=== PATIENT | female | born 1995 | race American Indian/Alaskan Native ===

== ENCOUNTER 2017-02-02 19:53 | Emergency (ER) | payer SELFPAY ==
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
[2017-02-02 21:08] VITALS: BP 121/71
[2017-02-02 21:16] LABS: CHLORIDE,CL 107 mmol/L (101-111); SODIUM,NA 139 mmol/L (135-145)
== END 2017-02-02 21:44 | disposition home or self-care (01) ==
LOC: DL.ED 19:53
DX: K64.1 Second degree hemorrhoids (principal); E66.9 Obesity, unspecified; Z88.1 Allergy status to other antibiotic agents; Z87.440 Personal history of urinary (tract) infections; Z98.890 Other specified postprocedural states
CPT/HCPCS: 36415; 80053; 81001; 82150; 85025; 86140; 99283

== ENCOUNTER 2017-05-14 11:38 | Emergency (ER) | payer OTHER ==
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
[2017-05-14 12:17] VITALS: BP 123/72
[2017-05-14] MEDS ORDERED: Magnesium Citrate Solution 296 ML Bottle PO ONE (13:00)
== END 2017-05-14 13:21 | disposition home or self-care (01) ==
LOC: DL.ED 11:38
DX: K59.00 Constipation, unspecified (principal); Z88.1 Allergy status to other antibiotic agents
CPT/HCPCS: 74020; 81001; 81025; 99284; A9270; 99282

== ENCOUNTER 2017-11-13 01:44 | Emergency (ER) | payer OTHER ==
[2017-11-13] MEDS ORDERED: Codeine/Promethazine 10-6.25 MG/5 ML Syrup 5 ML UD Cup PO ONE (01:45)
[2017-11-13 01:49] VITALS: BP 133/86
[2017-11-13] MEDS ORDERED: Azithromycin 250 MG Tab PO ONE (01:58)
[2017-11-13] MEDS ORDERED: Codeine/Promethazine 10-6.25 MG/5 ML Syrup 5 ML UD Cup ONE (02:04)
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
== END 2017-11-13 02:11 | disposition home or self-care (01) ==
LOC: DL.ED 01:44
DX: J40 Bronchitis, not specified as acute or chronic (principal); J03.90 Acute tonsillitis, unspecified; F17.210 Nicotine dependence, cigarettes, uncomplicated; E66.9 Obesity, unspecified; Z88.1 Allergy status to other antibiotic agents
CPT/HCPCS: 99283; A9270

== ENCOUNTER 2020-03-01 20:02 | Emergency (ER) | payer BC, OTHER ==
[2020-03-01 20:10] VITALS: BP 140/75; PULSE 97
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
--- NOTE | 2020-03-01 20:24 | CR ---
PROCEDURE INFORMATION: Exam: XR Left Finger(s) Exam date and time: 03/01/2020 8:12 PM Age: 24 years old Clinical indication: Other: Fall--3rd finger pain; Additional info: Swelling pain, fell TECHNIQUE: Imaging protocol: XR Left fingers. Views: Minimum 2 views. COMPARISON: No relevant prior studies available. FINDINGS: Bones/joints: Normal. Soft tissues: Soft tissue swelling surrounding the 3rd digit. IMPRESSION: Suggestion of soft tissue swelling 3rd digit. No fracture or dislocation.
== END 2020-03-01 20:28 | disposition home or self-care (01) ==
LOC: DL.ED 20:02
DX: S63.633A Sprain of interphalangeal joint of left middle finger, initial encounter (principal); E66.9 Obesity, unspecified; Z68.44 Body mass index [BMI] 60.0-69.9, adult; Z88.1 Allergy status to other antibiotic agents; W01.0XXA Fall on same level from slipping, tripping and stumbling without subsequent striking against object, initial encounter
CPT/HCPCS: 73140-F2; 99283

== ENCOUNTER 2020-08-05 20:40 | Emergency (ER) | payer BC, OTHER ==
[2020-08-05 22:22] VITALS: BP 137/77; PULSE 79
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
== END 2020-08-05 22:37 | disposition home or self-care (01) ==
LOC: DL.ED 20:40
DX: S29.011A Strain of muscle and tendon of front wall of thorax, initial encounter (principal); E66.9 Obesity, unspecified; Z79.899 Other long term (current) drug therapy; Z88.0 Allergy status to penicillin; X50.9XXA Other and unspecified overexertion or strenuous movements or postures, initial encounter
CPT/HCPCS: 99283; 99284

== ENCOUNTER 2021-06-09 00:02 | Emergency (ER) | payer MEDICAID ==
[2021-06-09 00:25] VITALS: BP 117/48; PULSE 79
[2021-06-09 01:11] LABS: ANION GAP 13.7 mEq/L (7-13); CHLORIDE,CL 103 mmol/L (98-107); SODIUM,NA 140 mmol/L (136-145)
== END 2021-06-09 01:49 | disposition home or self-care (01) ==
LOC: DL.ED 00:02
DX: R25.2 Cramp and spasm (principal); E66.9 Obesity, unspecified; Z68.44 Body mass index [BMI] 60.0-69.9, adult; Z88.0 Allergy status to penicillin; Z72.0 Tobacco use
CPT/HCPCS: 36415; 80053; 81003; 85025; 99283

== ENCOUNTER 2021-08-18 03:21 | Emergency (ER) | payer MEDICAID ==
[2021-08-18] MEDS ORDERED: LORazepam 1 MG Tab PO ONE (03:22)
[2021-08-18] MEDS ORDERED: MVI, Adult with Vitamin K 10 ML, Folic Acid 1 MG, Thiamine 100 MG in Lactated Ringers 1... IV ONE ×4 (03:43)
[2021-08-18 04:14] LABS: AMPHETAMINES,URINE POSITIVE (NEGATIVE); BARBITURATES,URINE NEGATIVE (NEGATIVE); BENZODIAZEPINE,URINE NEGATIVE (NEGATIVE); MDMA (ECSTASY), URINE NEGATIVE (NEGATIVE); METHADONE,URINE NEGATIVE (NEGATIVE); METHAMPHETAMINES,URINE POSITIVE (NEGATIVE); OPIATES,URINE NEGATIVE (NEGATIVE); OXYCODONE,URINE NEGATIVE (NEGATIVE); PHENCYCLIDINE,URINE NEGATIVE (NEGATIVE); TCA,URINE NEGATIVE (NEGATIVE)
[2021-08-18 04:33] LABS: ANION GAP 18.2 mEq/L (7-13); CHLORIDE,CL 106 mmol/L (98-107); SODIUM,NA 142 mmol/L (136-145)
[2021-08-18] MEDS ORDERED: LORazepam 2 MG/ML SDV IVPUSH ONE (04:42)
[2021-08-18 04:54] VITALS: BP 114/54; PULSE 61
[2021-08-18] MEDS ORDERED: LORazepam 1 MG Tab ONE (05:15)
== END 2021-08-18 05:25 | disposition home or self-care (01) ==
LOC: DL.ED 03:21
DX: F41.9 Anxiety disorder, unspecified (principal); F10.10 Alcohol abuse, uncomplicated; E66.9 Obesity, unspecified; Z68.43 Body mass index [BMI] 50.0-59.9, adult; Z88.0 Allergy status to penicillin
CPT/HCPCS: 36415; 80053; 80305; 80307; 81001; 82150; 84703; 85025; 96365; 96375; 99283; A9270; J2060; J3411; J7120; J3490

== ENCOUNTER 2021-08-24 10:38 | Observation (INO) | payer MEDICAID ==
[2021-08-24] MEDS ORDERED: MVI, Adult with Vitamin K 10 ML, Thiamine 100 MG, Folic Acid 1 MG in Lactated Ringers 1... IV ONE ×4 (11:00)
[2021-08-24] MEDS ORDERED: LORazepam 2 MG/ML SDV IVPUSH ONE (11:05)
[2021-08-24 11:19] LABS: AMPHETAMINES,URINE NEGATIVE (NEGATIVE); BARBITURATES,URINE NEGATIVE (NEGATIVE); BENZODIAZEPINE,URINE NEGATIVE (NEGATIVE); MDMA (ECSTASY), URINE NEGATIVE (NEGATIVE); METHADONE,URINE NEGATIVE (NEGATIVE); METHAMPHETAMINES,URINE NEGATIVE (NEGATIVE); OPIATES,URINE NEGATIVE (NEGATIVE); OXYCODONE,URINE NEGATIVE (NEGATIVE); PHENCYCLIDINE,URINE NEGATIVE (NEGATIVE); TCA,URINE NEGATIVE (NEGATIVE)
[2021-08-24] MEDS: Sodium Chloride 0.9% 10 ML Syringe FLUSH PRN ×2 (11:23→20:02)
[2021-08-24 11:35] LABS: PTT,PARTIAL THROMBOPLSTIN TIME 25.7 SEC (22.0-34.0)
[2021-08-24 11:42] LABS: ANION GAP 17.5 mEq/L (7-13); CHLORIDE,CL 104 mmol/L (98-107); SODIUM,NA 139 mmol/L (136-145)
[2021-08-24] MEDS ORDERED: LORazepam 2 MG/ML SDV IVPUSH PRN (13:47)
[2021-08-24] MEDS ORDERED: Ondansetron 4 MG Tab.DIS PO PRN (13:50)
[2021-08-24] MEDS ORDERED: Acetaminophen 325 MG Tab PO PRN (13:50)
[2021-08-24] MEDS ORDERED: Docusate Sodium 100 MG Cap PO PRN (13:50)
[2021-08-24] MEDS: Heparin Sodium 5,000 Units/ML Vial SUBCUT SCH ×2 (14:21→21:07)
[2021-08-24] MEDS: Folic Acid 1 MG Tab PO SCH (14:22)
[2021-08-24] MEDS: Thiamine 100 MG Tab PO SCH (14:23)
[2021-08-24] MEDS: Multivitamin Tab PO SCH (14:23)
[2021-08-24] MEDS: LORazepam 0.5 MG Tab PO PRN ×2 (17:47→22:11)
[2021-08-24] MEDS ORDERED: Temazepam 15 MG Cap PO PRN (21:00)
[2021-08-25] MEDS: Heparin Sodium 5,000 Units/ML Vial SUBCUT SCH (05:44)
[2021-08-25 06:43] LABS: ANION GAP 14.6 mEq/L (7-13); CHLORIDE,CL 104 mmol/L (98-107); SODIUM,NA 140 mmol/L (136-145)
[2021-08-25 07:44] VITALS: PULSE 65
[2021-08-25] MEDS: Folic Acid 1 MG Tab PO SCH (08:38)
[2021-08-25] MEDS: Thiamine 100 MG Tab PO SCH (08:38)
[2021-08-25] MEDS: Multivitamin Tab PO SCH (08:38)
[2021-08-25 11:45] VITALS: BP 126/74
[2021-08-26 12:47] LABS: C.TRACHOMATIS BY TMA Negative (Negative); N.GONORRHOEAE BY TMA Negative (Negative)
== END 2021-08-25 12:20 | disposition home or self-care (01) ==
LOC: DL.ED 10:38 → DL.MS 13:14 → UNDOADMOB 13:14 → INTOOBSV 13:14
PROVIDERS: ADMIT Internal Medicine; ATTEND Internal Medicine
DX: F10.10 Alcohol abuse, uncomplicated (principal); N89.8 Other specified noninflammatory disorders of vagina; F17.210 Nicotine dependence, cigarettes, uncomplicated; E66.9 Obesity, unspecified; Z98.890 Other specified postprocedural states; Z79.899 Other long term (current) drug therapy; Z88.0 Allergy status to penicillin; Z20.822 Contact with and (suspected) exposure to COVID-19
CPT/HCPCS: 36415; 80048; 80053; 80076; 80305-QW; 80307; 81003; 81025; 82150; 83690; 83735; 84100; 84443; 85025; 85610; 85730; 87070; 87491; 87563; 87591; 96365; 96372; 96375; 99217; 99219; 99285; 99285-25; A9270-GY; G0378; J1644; J2060; J3411; J3490; J7120; U0002

== ENCOUNTER 2021-09-16 14:22 | Emergency (ER) | payer MEDICAID, OTHER ==
[2021-09-16 15:54] LABS: ANION GAP 10.3 mEq/L (7-13); CHLORIDE,CL 105 mmol/L (98-107); SODIUM,NA 139 mmol/L (136-145)
[2021-09-16 16:19] LABS: AMPHETAMINES,URINE NEGATIVE (NEGATIVE); BARBITURATES,URINE NEGATIVE (NEGATIVE); BENZODIAZEPINE,URINE NEGATIVE (NEGATIVE); MDMA (ECSTASY), URINE NEGATIVE (NEGATIVE); METHADONE,URINE NEGATIVE (NEGATIVE); METHAMPHETAMINES,URINE NEGATIVE (NEGATIVE); OPIATES,URINE NEGATIVE (NEGATIVE); OXYCODONE,URINE POSITIVE (NEGATIVE); PHENCYCLIDINE,URINE NEGATIVE (NEGATIVE); TCA,URINE NEGATIVE (NEGATIVE)
[2021-09-16] MEDS ORDERED: LORazepam 0.5 MG Tab PO ONE (16:24)
[2021-09-16] MEDS ORDERED: Ondansetron 4 MG Tab.DIS PO ONE (16:24)
[2021-09-16 17:00] VITALS: BP 108/54; PULSE 72
== END 2021-09-16 16:58 | disposition home or self-care (01) ==
LOC: DL.ED 14:22
DX: F10.239 Alcohol dependence with withdrawal, unspecified (principal); E66.9 Obesity, unspecified; Z68.43 Body mass index [BMI] 50.0-59.9, adult; Z88.0 Allergy status to penicillin; Z72.0 Tobacco use
CPT/HCPCS: 36415; 80053; 80305-QW; 80307; 81001; 81025; 85025; 99282; 99284; A9270-GY

== ENCOUNTER 2021-09-26 06:01 | Emergency (ER) | payer MEDICAID ==
[2021-09-26 06:10] VITALS: BP 133/83; PULSE 81
[2021-09-26] MEDS ORDERED: Bacitracin Oint 1 GM U/D Packet TOP ONE (06:18)
[2021-09-26] MEDS ORDERED: LORazepam 0.5 MG Tab PO ONE (06:18)
== END 2021-09-26 07:02 | disposition home or self-care (01) ==
LOC: DL.ED 06:01
DX: F41.9 Anxiety disorder, unspecified (principal); F10.10 Alcohol abuse, uncomplicated; S61.213A Laceration without foreign body of left middle finger without damage to nail, initial encounter; E66.9 Obesity, unspecified; Z68.43 Body mass index [BMI] 50.0-59.9, adult; Z88.0 Allergy status to penicillin; Z72.0 Tobacco use
CPT/HCPCS: 99283; 99284; A9270-GY

== ENCOUNTER 2021-10-22 03:23 | Emergency (ER) | payer MEDICAID ==
[2021-10-22] MEDS ORDERED: MVI, Adult with Vitamin K 10 ML, Folic Acid 1 MG, Thiamine 100 MG in Lactated Ringers 1... IV ONE ×4 (03:34)
[2021-10-22 03:38] VITALS: BP 128/93; PULSE 97
[2021-10-22] MEDS ORDERED: LORazepam 2 MG/ML SDV IVPUSH PRN (03:43)
[2021-10-22 04:42] LABS: ANION GAP 17.5 mEq/L (7-13); CHLORIDE,CL 110 mmol/L (98-107); SODIUM,NA 146 mmol/L (136-145)
[2021-10-22 04:48] LABS: AMPHETAMINES,URINE NEGATIVE (NEGATIVE); BARBITURATES,URINE NEGATIVE (NEGATIVE); BENZODIAZEPINE,URINE NEGATIVE (NEGATIVE); MDMA (ECSTASY), URINE NEGATIVE (NEGATIVE); METHADONE,URINE NEGATIVE (NEGATIVE); METHAMPHETAMINES,URINE NEGATIVE (NEGATIVE); OPIATES,URINE NEGATIVE (NEGATIVE); OXYCODONE,URINE NEGATIVE (NEGATIVE); PHENCYCLIDINE,URINE NEGATIVE (NEGATIVE); TCA,URINE NEGATIVE (NEGATIVE)
== END 2021-10-22 13:19 | disposition other institution (70) ==
LOC: DL.ED 03:23
DX: F10.129 Alcohol abuse with intoxication, unspecified (principal); R45.851 Suicidal ideations; F17.210 Nicotine dependence, cigarettes, uncomplicated; E66.9 Obesity, unspecified; Z68.43 Body mass index [BMI] 50.0-59.9, adult; Z88.0 Allergy status to penicillin; Y90.7 Blood alcohol level of 200-239 mg/100 ml
CPT/HCPCS: 36415; 80053; 80305; 80307; 81001; 84703; 85025; 96365; 96375; 99285; J2060; J3411; J7120; J3490

== ENCOUNTER 2021-11-13 16:13 | Observation (INO) | payer MEDICAID ==
[2021-11-13] MEDS ORDERED: Sodium Chloride 0.9% 10 ML Syringe FLUSH PRN (16:22)
[2021-11-13] MEDS ORDERED: MVI, Adult with Vitamin K 10 ML, Folic Acid 1 MG, Thiamine 100 MG in Lactated Ringers 1... IV ONE ×4 (16:49)
[2021-11-13 17:07] LABS: ANION GAP 16.1 mEq/L (7-13)
[2021-11-13] MEDS ORDERED: Potassium Chloride 10 MEQ Tab.ER PO ONE (17:52)
[2021-11-13 18:12] LABS: AMPHETAMINES,URINE NEGATIVE (NEGATIVE); BARBITURATES,URINE NEGATIVE (NEGATIVE); BENZODIAZEPINE,URINE NEGATIVE (NEGATIVE); MDMA (ECSTASY), URINE NEGATIVE (NEGATIVE); METHADONE,URINE NEGATIVE (NEGATIVE); METHAMPHETAMINES,URINE NEGATIVE (NEGATIVE); OPIATES,URINE NEGATIVE (NEGATIVE); OXYCODONE,URINE NEGATIVE (NEGATIVE); PHENCYCLIDINE,URINE NEGATIVE (NEGATIVE); TCA,URINE NEGATIVE (NEGATIVE)
[2021-11-13] MEDS ORDERED: Albuterol/Ipratropium 3.0-0.5 MG/3 ML Neb Soln NEB PRN (19:39)
[2021-11-13] MEDS ORDERED: Ketorolac 30 MG/ML SDV IVPUSH PRN (19:39)
[2021-11-13] MEDS ORDERED: Bisacodyl 5 MG Tab PO PRN (19:39)
[2021-11-13] MEDS ORDERED: HYDROmorphone 0.5 MG/0.5 ML Syringe IVPUSH PRN (19:39)
[2021-11-13] MEDS ORDERED: Docusate Sodium 100 MG Cap PO PRN (19:39)
[2021-11-13] MEDS ORDERED: Polyethylene Glycol 3350 Powder 17 GM Packet PO PRN (19:39)
[2021-11-13] MEDS ORDERED: LORazepam 2 MG/ML SDV IV PRN (19:42)
[2021-11-13] MEDS ORDERED: Thiamine 100 MG in Sodium Chloride 0.9% 50 ML IV ONE (19:42)
[2021-11-13] MEDS ORDERED: cloNIDine 0.1 MG Tab PO PRN (19:42)
[2021-11-13] MEDS ORDERED: LORazepam 0.5 MG Tab PO PRN (19:42)
[2021-11-13] MEDS ORDERED: Nicotine 21 MG/24 Hr Patch TRDERM PRN (19:42)
[2021-11-13] MEDS ORDERED: LORazepam 2 MG/ML SDV IVPUSH ONE (19:44)
[2021-11-13] MEDS ORDERED: Flumazenil 0.1 MG/ML 5 ML MDV IVPUSH PRN (19:44)
[2021-11-13] MEDS ORDERED: Famotidine 20 MG/2 ML SDV IVPUSH ONE (19:45)
[2021-11-13] MEDS ORDERED: Haloperidol Lactate 5 MG/ML SDV IVPUSH PRN (20:02)
[2021-11-13] MEDS ORDERED: hydrALAZINE 20 MG/ML SDV IVPUSH PRN (20:04)
[2021-11-13] MEDS ORDERED: Metoprolol Tartrate 5 MG/5 ML SDV IVPUSH PRN (20:04)
[2021-11-13] MEDS ORDERED: LORazepam 2 MG/ML SDV IVPUSH PRN (20:05)
[2021-11-13] MEDS: Topiramate 25 MG Tab PO SCH (20:38)
[2021-11-13] MEDS ORDERED: Sodium Chloride 0.9% 1,000 ML IV SCH (20:45)
[2021-11-13] MEDS ORDERED: Topiramate 25 MG Tab PO SCH (21:00)
[2021-11-13] MEDS ORDERED: QUEtiapine 25 MG Tab PO SCH ×2 (21:00)
[2021-11-14 06:51] LABS: ANION GAP 9.4 mEq/L (7-13)
[2021-11-14] MEDS ORDERED: Potassium Chloride 10 MEQ Tab.ER PO ONE ×2 (07:42→10:45)
[2021-11-14] MEDS ORDERED: Magnesium Sulfate/Water 2 GM in Premix Bag 1 BAG IV ONE (07:44)
[2021-11-14] MEDS: Folic Acid 1 MG Tab PO SCH (10:16)
[2021-11-14] MEDS: Famotidine 20 MG Tab PO SCH ×2 (10:16→22:05)
[2021-11-14] MEDS: Topiramate 25 MG Tab PO SCH (10:17)
[2021-11-14] MEDS: Thiamine 100 MG Tab PO SCH (10:17)
[2021-11-14] MEDS: Multivitamin Tab PO SCH (10:18)
[2021-11-14] MEDS: Ondansetron 4 MG/2 ML SDV IVPUSH PRN (13:23)
[2021-11-14] MEDS: Ibuprofen 600 MG Tab PO PRN (13:23)
[2021-11-14] MEDS ORDERED: Melatonin 3 MG Tab PO PRN (18:26)
[2021-11-15 06:42] LABS: ANION GAP 10.1 mEq/L (7-13)
[2021-11-15] MEDS: Ondansetron 4 MG/2 ML SDV IVPUSH PRN (08:55)
[2021-11-15] MEDS: Ibuprofen 600 MG Tab PO PRN (08:55)
[2021-11-15] MEDS: Thiamine 100 MG Tab PO SCH (08:58)
[2021-11-15] MEDS: Multivitamin Tab PO SCH (08:58)
[2021-11-15] MEDS: Famotidine 20 MG Tab PO SCH (08:58)
[2021-11-15] MEDS: Folic Acid 1 MG Tab PO SCH (08:58)
[2021-11-15] MEDS ORDERED: Ondansetron 4 MG Tab.DIS PO ONE (09:06)
[2021-11-15 11:16] VITALS: BP 108/62; PULSE 65
== END 2021-11-15 10:35 | disposition other institution (70) ==
LOC: DL.ED 16:13 → DL.MS 18:04
PROVIDERS: ADMIT Internal Medicine; ATTEND Internal Medicine
DX: F32.A Depression, unspecified (principal); F41.0 Panic disorder [episodic paroxysmal anxiety]; E87.6 Hypokalemia; R45.851 Suicidal ideations; E66.9 Obesity, unspecified; Z68.43 Body mass index [BMI] 50.0-59.9, adult; Z88.0 Allergy status to penicillin; Z20.822 Contact with and (suspected) exposure to COVID-19
CPT/HCPCS: 36415; 80053; 80143; 80179; 80305; 80307; 81003; 81025; 83735; 84443; 85025; 85610; 87635; 96365; 99285; A9270; J2060; J2405; J3411; J3475; J3490; J7030; J7120; 96366; 96367; 96375; G0378; U0002

== ENCOUNTER 2021-11-21 04:59 | Emergency (ER) | payer MEDICAID ==
[2021-11-21 05:34] VITALS: BP 118/79; PULSE 70
== END 2021-11-21 06:25 ==
LOC: DL.ED 04:59
DX: Z02.89 Encounter for other administrative examinations (principal); F41.9 Anxiety disorder, unspecified; F32.A Depression, unspecified; E66.9 Obesity, unspecified; Z88.0 Allergy status to penicillin; Z20.822 Contact with and (suspected) exposure to COVID-19
CPT/HCPCS: 81025; 99283; U0002

== ENCOUNTER 2021-11-28 02:42 | Emergency (ER) | payer MEDICAID ==
[2021-11-28] MEDS ORDERED: Ondansetron 4 MG/2 ML SDV IVPUSH ONE (02:54)
[2021-11-28] MEDS ORDERED: Sodium Chloride 0.9% 1,000 ML IV ONE (02:54)
[2021-11-28] MEDS: Metoclopramide 10 MG/2 ML SDV ONE ×2 (03:35→03:42)
[2021-11-28] MEDS: Metoclopramide 10 MG/2 ML SDV IVPUSH ONE ×2 (03:35→03:49)
[2021-11-28 03:40] LABS: ANION GAP 17.5 mEq/L (7-13); CHLORIDE,CL 113 mmol/L (98-107); SODIUM,NA 148 mmol/L (136-145)
[2021-11-28 03:41] LABS: ACETAMINOPHEN 0 ug/mL (10-30 (Therapeutic)); ESTIMATED GFR 106 mL/min (>=60)
[2021-11-28] MEDS ORDERED: Haloperidol Lactate 5 MG/ML SDV IM ONE (03:41)
[2021-11-28] MEDS ORDERED: LORazepam 2 MG/ML SDV IVPUSH PRN (03:41)
[2021-11-28] MEDS ORDERED: diphenhydrAMINE 50 MG/ML SDV IVPUSH PRN (03:41)
[2021-11-28 03:53] VITALS: BP 68/58; PULSE 84
[2021-11-28 07:28] LABS: ACETAMINOPHEN 0 ug/mL (10-30 (Therapeutic))
[2021-11-28] MEDS ORDERED: LORazepam 2 MG/ML SDV IVPUSH ONE (11:49)
== END 2021-11-28 12:05 | disposition other institution (70) ==
LOC: DL.ED 02:42
DX: F10.239 Alcohol dependence with withdrawal, unspecified (principal); F32.9 Major depressive disorder, single episode, unspecified; R45.851 Suicidal ideations; E66.9 Obesity, unspecified; Z68.30 Body mass index [BMI] 30.0-30.9, adult; Z86.16 Personal history of COVID-19; Z88.0 Allergy status to penicillin; Z79.899 Other long term (current) drug therapy
CPT/HCPCS: 36415; 80053; 80143; 80179; 80307; 82150; 85025; 96361; 96374; 96375; 99284; J2060; J2405; J2765; J7030; 99283

== ENCOUNTER 2021-12-02 08:47 | Emergency (ER) | payer MEDICAID ==
[2021-12-02 09:21] VITALS: BP 109/85; PULSE 76
[2021-12-02] MEDS: Ondansetron 4 MG/2 ML SDV IVPUSH ONE (09:36)
[2021-12-02 09:42] LABS: AMPHETAMINES,URINE NEGATIVE (NEGATIVE); BARBITURATES,URINE NEGATIVE (NEGATIVE); BENZODIAZEPINE,URINE POSITIVE (NEGATIVE); MDMA (ECSTASY), URINE NEGATIVE (NEGATIVE); METHADONE,URINE NEGATIVE (NEGATIVE); METHAMPHETAMINES,URINE NEGATIVE (NEGATIVE); OPIATES,URINE NEGATIVE (NEGATIVE); OXYCODONE,URINE NEGATIVE (NEGATIVE); PHENCYCLIDINE,URINE NEGATIVE (NEGATIVE); TCA,URINE NEGATIVE (NEGATIVE)
[2021-12-02 09:44] LABS: ANION GAP 19.7 mEq/L (7-13); CHLORIDE,CL 108 mmol/L (98-107); SODIUM,NA 144 mmol/L (136-145)
[2021-12-02 09:52] LABS: ESTIMATED GFR 108 mL/min (>=60)
[2021-12-02] MEDS: MVI, Adult with Vitamin K 10 ML, Folic Acid 1 MG, Thiamine 100 MG in Lactated Ringers 1... IV ONE ×4 (09:55)
[2021-12-02] MEDS: Sodium Chloride 0.9% 10 ML Syringe FLUSH PRN (09:56)
== END 2021-12-02 13:22 ==
LOC: DL.ED 08:47
DX: R45.851 Suicidal ideations (principal); E66.9 Obesity, unspecified; Z68.43 Body mass index [BMI] 50.0-59.9, adult; Z88.0 Allergy status to penicillin; Z86.16 Personal history of COVID-19
CPT/HCPCS: 36415; 80053; 80305; 80307; 82150; 83690; 83735; 84484; 85025; 93005; 93010; 96365; 96375; 99283; 99285; J2405; J3411; J3490; J7120

== ENCOUNTER 2022-03-01 08:34 | Emergency (ER) | payer MEDICAID ==
[2022-03-01] MEDS ORDERED: Ondansetron 4 MG/2 ML SDV IVPUSH ONE (09:10)
[2022-03-26 15:46] LABS: ANION GAP 13.4 mEq/L (7-13); CHLORIDE,CL 107 mmol/L (98-107); ESTIMATED GFR 122 mL/min (>=60); SODIUM,NA 143 mmol/L (136-145)
[2022-03-26 15:48] LABS: AMPHETAMINES,URINE NEGATIVE (NEGATIVE); BARBITURATES,URINE NEGATIVE (NEGATIVE); BENZODIAZEPINE,URINE NEGATIVE (NEGATIVE); MDMA (ECSTASY), URINE NEGATIVE (NEGATIVE); METHADONE,URINE NEGATIVE (NEGATIVE); METHAMPHETAMINES,URINE NEGATIVE (NEGATIVE); OPIATES,URINE NEGATIVE (NEGATIVE); OXYCODONE,URINE NEGATIVE (NEGATIVE); PHENCYCLIDINE,URINE NEGATIVE (NEGATIVE); TCA,URINE NEGATIVE (NEGATIVE)
== END 2022-03-01 11:14 | disposition home or self-care (01) ==
LOC: DL.ED 08:34
DX: F10.139 Alcohol abuse with withdrawal, unspecified (principal); F41.9 Anxiety disorder, unspecified; Y90.2 Blood alcohol level of 40-59 mg/100 ml
CPT/HCPCS: 36415; 80053; 80305-QW; 80307; 81025; 85025; 96365; 96375; 99284-25

== ENCOUNTER 2022-03-04 14:55 | Emergency (ER) | payer MEDICAID ==
[2022-03-04] MEDS ORDERED: cefTRIAXone 500 MG Vial IV ONE (16:40)
[2022-03-04] MEDS ORDERED: Lidocaine 1% 10 ML MDV IM ONE (16:40)
[2022-03-29 13:57] LABS: ANION GAP 11.8 mEq/L (7-13); CHLORIDE,CL 105 mmol/L (98-107); ESTIMATED GFR 96 mL/min (>=60); SODIUM,NA 140 mmol/L (136-145)
[2022-03-29 14:00] LABS: C.TRACHOMATIS BY TMA NEGATIVE; N.GONORRHOEAE BY TMA NEGATIVE
== END 2022-03-04 16:46 | disposition home or self-care (01) ==
LOC: DL.ED 14:55
DX: Z20.2 Contact with and (suspected) exposure to infections with a predominantly sexual mode of transmission (principal)
CPT/HCPCS: 36415; 80053; 81003; 81025; 85025; 87491; 87591; 96372; 99283; J0696

== ENCOUNTER 2022-04-11 09:29 | Emergency (ER) | payer MEDICAID | END 2022-04-11 11:00 | disposition left against medical advice (07) | LOC: DL.ED 09:29 | DX: Z53.21 Procedure and treatment not carried out due to patient leaving prior to being seen by health care provider (principal) ==

== ENCOUNTER 2023-07-13 00:09 | Emergency (ER) | payer SELFPAY ==
[2023-07-13 00:29] VITALS: BP 153/95; PULSE 74
[2023-07-13 00:40] LABS: APPEARANCE,URINE CLEAR (CLEAR); BILIRUBIN,URINE NEGATIVE (NEGATIVE); COLOR,URINE YELLOW (YELLOW); GLUCOSE,URINE NEGATIVE (NEGATIVE); KETONES,URINE NEGATIVE (NEGATIVE); NITRITE,URINE NEGATIVE (NEGATIVE); OCCULT BLOOD,URINE LARGE (NEGATIVE); PROTEIN,URINE >=300 (NEGATIVE); UROBILINOGEN,URINE 0.2 mg/dL (0.2-1.0)
[2023-07-13 00:54] LABS: LEUKOCYTE ESTERASE,URINE TRACE (NEGATIVE)
[2023-07-13] MEDS ORDERED: Sodium Chloride 0.9% 10 ML Syringe FLUSH PRN (00:57)
[2023-07-13 00:59] LABS: BACTERIA,URINE FEW /HPF (0-FEW/HPF); EPITHELIAL CELLS,URINE FEW /HPF (NOT SEEN); MUCUS,URINE OCCASIONAL /LPF (NOT SEEN); RBC,URINE 40-50 /HPF (0-5)
[2023-07-13] MEDS: Phenazopyridine 95 MG Tab PO ONE (01:06)
[2023-07-13] MEDS: Nitrofurantoin Monohydrate/Macrocrystalline 100 MG Cap PO ONE (01:06)
== END 2023-07-13 01:10 | disposition home or self-care (01) ==
LOC: DL.ED 00:09
DX: N39.0 Urinary tract infection, site not specified (principal); Z86.16 Personal history of COVID-19; Z88.0 Allergy status to penicillin
CPT/HCPCS: 81001; 81025; 87086; 87088; 87186; 99284; A9270-GY

== ENCOUNTER 2023-07-16 09:53 | Emergency (ER) | payer SELFPAY ==
[2023-07-16 10:08] LABS: BASOPHILS PERCENT AUTO 0.3 % (0.0-1.0); EOSINOPHILS PERCENT AUTO 0.9 % (1.0-3.0); HEMATOCRIT 36.3 % (37.0-47.0); HEMOGLOBIN 12.2 g/dL (12.0-16.0); LYMPHOCYTES PERCENT AUTO 23.7 % (20.5-50.1); MEAN CORPUSCULAR HEMOGLOBIN 28.6 pg (27.0-34.0); MEAN CORPUSCULAR HGB CONC 33.6 g/dL (33.0-35.0); MEAN CORPUSCULAR VOLUME 85.2 fL (80-100); MONOCYTES PERCENT AUTO 6.2 % (2-8); NEUTROPHILS PERCENT AUTO 68.9 % (42.2-75.2); PLATELET COUNT,PLT 282 10^3/uL (150-450); RED BLOOD CELL COUNT 4.26 10^6/uL (4.2-5.4)
[2023-07-16 10:13] LABS: AMPHETAMINES,URINE NEGATIVE (NEGATIVE); BARBITURATES,URINE NEGATIVE (NEGATIVE); BENZODIAZEPINE,URINE NEGATIVE (NEGATIVE); MDMA (ECSTASY), URINE NEGATIVE (NEGATIVE); METHADONE,URINE NEGATIVE (NEGATIVE); METHAMPHETAMINES,URINE NEGATIVE (NEGATIVE); OPIATES,URINE NEGATIVE (NEGATIVE); OXYCODONE,URINE NEGATIVE (NEGATIVE); PHENCYCLIDINE,URINE NEGATIVE (NEGATIVE); TCA,URINE NEGATIVE (NEGATIVE)
[2023-07-16 10:27] LABS: A/G RATIO 0.9; ALBUMIN 3.5 g/dL (3.4-5.0); ANION GAP 17.3 mEq/L (7-13); BILIRUBIN TOTAL 0.5 mg/dL (0.2-1.0); BUN/CREATININE RATIO 9.7 (No establ ref range); CALCIUM 8.3 mg/dL (8.5-10.1); CREATININE 0.72 mg/dL (0.55-1.02); EST CRCL DRUG DOSING (CG) 94.51 mL/min; POTASSIUM,K 3.3 mmol/L (3.5-5.1); PROTEIN TOTAL,TP 7.2 g/dL (6.4-8.2)
[2023-07-16] MEDS: LORazepam 1 MG Tab PO PRN (11:58)
[2023-07-16 12:21] VITALS: BP 146/92; PULSE 87
[2023-07-16] MEDS: Ondansetron 4 MG/2 ML SDV IVPUSH ONE (12:23)
== END 2023-07-16 12:03 ==
LOC: DL.ED 09:53
DX: F10.10 Alcohol abuse, uncomplicated (principal); Z88.0 Allergy status to penicillin; Z86.16 Personal history of COVID-19; Z79.899 Other long term (current) drug therapy
CPT/HCPCS: 36415; 80053; 80143; 80179; 80305; 80307; 81025; 83690; 85025; 99284; 99285; A9270

== ENCOUNTER 2023-11-08 16:39 | Emergency (ER) | payer BC ==
[2023-11-08 17:33] VITALS: BP 148/82; PULSE 63
== END 2023-11-08 18:10 | disposition left against medical advice (07) ==
LOC: DL.ED 16:39
DX: Z53.21 Procedure and treatment not carried out due to patient leaving prior to being seen by health care provider (principal)

== ENCOUNTER 2024-10-29 09:31 | Inpatient (IN) | payer BC, MEDICAID ==
[2024-10-29] MEDS ORDERED: Thiamine 100 MG in Sodium Chloride 0.9% 1,000 ML IV ONE (09:35)
[2024-10-29] MEDS: Ondansetron 4 MG/2 ML SDV IVPUSH ONE (10:04)
[2024-10-29 10:05] LABS: BASOPHILS PERCENT AUTO 0.4 % (0.0-1.0); EOSINOPHILS PERCENT AUTO 0.7 % (1.0-3.0); HEMATOCRIT 39.6 % (37.0-47.0); HEMOGLOBIN 13.1 g/dL (12.0-16.0); LYMPHOCYTES PERCENT AUTO 39.2 % (20.5-50.1); MEAN CORPUSCULAR HEMOGLOBIN 28.2 pg (27.0-34.0); MEAN CORPUSCULAR HGB CONC 33.1 g/dL (33.0-35.0); MEAN CORPUSCULAR VOLUME 85.3 fL (80-100); MONOCYTES PERCENT AUTO 10.5 % (2-8); NEUTROPHILS PERCENT AUTO 49.2 % (42.2-75.2); PLATELET COUNT,PLT 251 10^3/uL (150-450); RED BLOOD CELL COUNT 4.64 10^6/uL (4.2-5.4); WHITE BLOOD CELL COUNT,WBC 4.6 10^3/uL (5.0-10.0)
[2024-10-29] MEDS: PHENobarbitaL sodium 260 MG in Sodium Chloride 0.9% 100 ML IV ONE (10:05)
[2024-10-29 10:26] LABS: HCG QUALITATIVE,SERUM NEGATIVE (NEGATIVE)
[2024-10-29 10:31] LABS: ALANINE AMINOTRANSFERASE,ALT 35 U/L (14-59); ALKALINE PHOSPHATASE 128 U/L (46-116); ANION GAP 16.2 mEq/L (7-13); ASPARTATE AMNIOTRANSFERASE,AST 28 U/L (15-37); BILIRUBIN TOTAL 0.5 mg/dL (0.2-1.0); BLOOD UREA NITROGEN,BUN 3 mg/dL (7-18); BUN/CREATININE RATIO 4.1 (No establ ref range); CARBON DIOXIDE,CO2 24 mmol/L (21-32); CHLORIDE,CL 106 mmol/L (98-107); CREATININE 0.73 mg/dL (0.55-1.02); ETHANOL BLOOD MEDICAL 133 mg/dL (0); GLUCOSE RANDOM 110 mg/dL (70-99); MAGNESIUM 1.5 mg/dL (1.8-2.4); POTASSIUM,K 3.2 mmol/L (3.5-5.1); PROTEIN TOTAL,TP 7.1 g/dL (6.4-8.2); SODIUM,NA 143 mmol/L (136-145)
[2024-10-29 10:33] LABS: A/G RATIO 0.73; ESTIMATED GFR 113 mL/min (>=60)
[2024-10-29] MEDS: Thiamine 100 MG in Sodium Chloride 0.9% 1,000 ML IV ONE (10:56)
[2024-10-29] MEDS: chlordiazePOXIDE 25 MG Cap PO ONE (12:07)
[2024-10-29] MEDS: LORazepam 2 MG/ML SDV IVPUSH ONE (12:08)
[2024-10-29] MEDS: Lactated Ringers 1,000 ML IV ONE (12:09)
[2024-10-29] MEDS ORDERED: Acetaminophen 325 MG Tab PO PRN (12:38)
[2024-10-29] MEDS ORDERED: Sodium Chloride 0.9% 10 ML Syringe FLUSH PRN (12:38)
[2024-10-29] MEDS: MVI, Adult with Vitamin K 10 ML, Folic Acid 1 MG, Thiamine 100 MG in Lactated Ringers 1... IV ONE (14:03)
[2024-10-29] MEDS: Heparin Sodium 5,000 Units/ML Vial SUBCUT SCH (14:07)
[2024-10-29] MEDS: Potassium Chloride 20 MEQ in Premix Bag 1 BAG IV ONE (14:11)
[2024-10-29] MEDS: Magnesium Sulfate 2 GM/50 mL 2 GM in Premix Bag 1 BAG IV ONE (14:11)
[2024-10-29] MEDS: Sodium Chloride 0.9% 1,000 ML IV SCH (14:12)
[2024-10-29] MEDS: chlordiazePOXIDE 25 MG Cap PO SCH (16:06)
[2024-10-29] MEDS: Magnesium Oxide 400 MG Tab PO SCH (17:07)
[2024-10-29 19:36] LABS: AMPHETAMINES,URINE NEGATIVE (NEGATIVE); BARBITURATES,URINE POSITIVE (NEGATIVE); BENZODIAZEPINE,URINE NEGATIVE (NEGATIVE); MDMA (ECSTASY), URINE NEGATIVE (NEGATIVE); METHADONE,URINE NEGATIVE (NEGATIVE); METHAMPHETAMINES,URINE NEGATIVE (NEGATIVE); OPIATES,URINE NEGATIVE (NEGATIVE); OXYCODONE,URINE NEGATIVE (NEGATIVE); PHENCYCLIDINE,URINE NEGATIVE (NEGATIVE); TCA,URINE NEGATIVE (NEGATIVE)
[2024-10-29] MEDS: Sodium Chloride 0.9% 10 ML Syringe FLUSH SCH (20:24)
[2024-10-29] MEDS: Pantoprazole 40 MG Vial IVPUSH SCH (20:24)
[2024-10-30] MEDS: LORazepam 2 MG/ML SDV IVPUSH PRN (00:15)
[2024-10-30 06:30] LABS: BASOPHILS PERCENT AUTO 0.3 % (0.0-1.0); EOSINOPHILS PERCENT AUTO 3.6 % (1.0-3.0); HEMATOCRIT 35.5 % (37.0-47.0); LYMPHOCYTES PERCENT AUTO 45.9 % (20.5-50.1); MEAN CORPUSCULAR HEMOGLOBIN 27.4 pg (27.0-34.0); MEAN CORPUSCULAR VOLUME 88.5 fL (80-100); MONOCYTES PERCENT AUTO 8.5 % (2-8); NEUTROPHILS PERCENT AUTO 41.7 % (42.2-75.2); PLATELET COUNT,PLT 200 10^3/uL (150-450); RED BLOOD CELL COUNT 4.01 10^6/uL (4.2-5.4); WHITE BLOOD CELL COUNT,WBC 3.9 10^3/uL (5.0-10.0)
[2024-10-30 06:48] LABS: A/G RATIO 0.71; ALBUMIN 2.5 g/dL (3.4-5.0); ANION GAP 13.4 mEq/L (7-13); BILIRUBIN DIRECT 0.2 mg/dL (0.0-0.2); BILIRUBIN INDIRECT 0.5; BILIRUBIN TOTAL 0.7 mg/dL (0.2-1.0); CALCIUM 7.8 mg/dL (8.5-10.1); CREATININE 0.68 mg/dL (0.55-1.02); EST CRCL DRUG DOSING (CG) 99.16 mL/min; MAGNESIUM 1.9 mg/dL (1.8-2.4); PHOSPHORUS 2.8 mg/dL (2.6-4.7); POTASSIUM,K 3.4 mmol/L (3.5-5.1)
[2024-10-30] MEDS: Venlafaxine 150 MG Cap.ER PO SCH (08:26)
[2024-10-30] MEDS: chlordiazePOXIDE 25 MG Cap PO SCH (08:27)
[2024-10-30] MEDS: Magnesium Sulfate 2 GM/50 mL 2 GM in Premix Bag 1 BAG IV ONE (08:28)
[2024-10-30] MEDS: Potassium Chloride 20 MEQ in Premix Bag 1 BAG IV ONE (08:28)
[2024-10-30 08:29] LABS: PERCENT FE SATURATION 10.4 % (20.0-50.0)
[2024-10-30] MEDS: Ondansetron 4 MG/2 ML SDV IVPUSH PRN (12:41)
[2024-10-30] MEDS: Diphtheria,Pertussis(Acell),Tetanus Vaccine 0.5 ML Syringe IM ONE (17:17)
[2024-10-30] MEDS: Rabies Vaccine (Avian) 2.5 Unit Inj Kit IM ONE (18:03)
[2024-10-30] MEDS: Rabies Immune Globulin/PF (HyperRAB) 300 UNIT/ML 5 ML SDV ONE (18:09)
[2024-10-30] MEDS: Rabies Immune Globulin/PF (HyperRAB) 300 UNIT/ML 1 ML SDV ONE (18:13)
[2024-10-31 06:31] LABS: BASOPHILS PERCENT AUTO 0.5 % (0.0-1.0); EOSINOPHILS PERCENT AUTO 5.9 % (1.0-3.0); HEMATOCRIT 35.4 % (37.0-47.0); HEMOGLOBIN 11.3 g/dL (12.0-16.0); LYMPHOCYTES PERCENT AUTO 36.1 % (20.5-50.1); MEAN CORPUSCULAR HEMOGLOBIN 28.4 pg (27.0-34.0); MEAN CORPUSCULAR HGB CONC 31.9 g/dL (33.0-35.0); MEAN CORPUSCULAR VOLUME 88.9 fL (80-100); MONOCYTES PERCENT AUTO 9.7 % (2-8); NEUTROPHILS PERCENT AUTO 47.8 % (42.2-75.2); PLATELET COUNT,PLT 187 10^3/uL (150-450); RED BLOOD CELL COUNT 3.98 10^6/uL (4.2-5.4); WHITE BLOOD CELL COUNT,WBC 4.2 10^3/uL (5.0-10.0)
[2024-10-31 06:48] LABS: ANION GAP 10.7 mEq/L (7-13); CREATININE 0.63 mg/dL (0.55-1.02); EST CRCL DRUG DOSING (CG) 107.03 mL/min; MAGNESIUM 2.1 mg/dL (1.8-2.4); POTASSIUM,K 3.7 mmol/L (3.5-5.1)
[2024-11-01] MEDS: Ferrous Sulfate 325 MG Tab PO SCH (08:01)
[2024-11-01] MEDS: chlordiazePOXIDE 25 MG Cap PO SCH (08:11)
[2024-11-01] MEDS: Pantoprazole 40 MG Tab.CR PO SCH (21:19)
[2024-11-02] MEDS: chlordiazePOXIDE 10 MG Cap PO SCH (10:24)
[2024-11-02 16:06] VITALS: BP 136/86; PULSE 81
[2024-11-02] MEDS ORDERED: Rabies Vaccine (Avian) 2.5 Unit Inj Kit IM ONE (16:45)
[2024-11-06] MEDS ORDERED: Rabies Vaccine (Avian) 2.5 Unit Inj Kit IM ONE (16:45)
[2024-11-13] MEDS ORDERED: Rabies Vaccine (Avian) 2.5 Unit Inj Kit IM ONE (16:45)
== END 2024-11-02 16:30 | disposition home or self-care (01) | DRG 897 ==
LOC: DL.ED 09:31 → DL.MS 11:45
PROVIDERS: ADMIT Internal Medicine; ATTEND Internal Medicine
PROC: 3E0234Z Introduction of Serum, Toxoid and Vaccine into Muscle, Percutaneous Approach (ICD-10-PCS; principal; 2024-10-30)
DX: F10.239 Alcohol dependence with withdrawal, unspecified (principal); Z68.43 Body mass index [BMI] 50.0-59.9, adult; H54.7 Unspecified visual loss; F32.A Depression, unspecified; F41.9 Anxiety disorder, unspecified; E66.01 Morbid (severe) obesity due to excess calories; E88.89 Other specified metabolic disorders; E87.6 Hypokalemia; E83.42 Hypomagnesemia; D64.9 Anemia, unspecified; S81.851A Open bite, right lower leg, initial encounter; Z88.0 Allergy status to penicillin; Z79.899 Other long term (current) drug therapy; Z86.16 Personal history of COVID-19; Z23 Encounter for immunization; W54.0XXA Bitten by dog, initial encounter
CPT/HCPCS: 36415; 80053; 80307; 82607; 82746; 82977; 83735; 84703; 85025; 96365 ×2; 96366; 96375; 99285 ×2; J2405; J2560; J3411; J7030; 80048; 80076; 80305-QW; 82272; 83540; 83550; 84100; 90375; 90675; 90715; 99223; 99232; 99233; 99239; A9270-GY; J1644; J2060; J2470; J3475; J3480; J3490; J7120

== ENCOUNTER 2024-12-08 19:33 | Inpatient (IN) | payer MEDICAID ==
[2024-12-08 20:03] LABS: BASOPHILS PERCENT AUTO 0.3 % (0.0-1.0); EOSINOPHILS PERCENT AUTO 0.7 % (1.0-3.0); LYMPHOCYTES PERCENT AUTO 56.7 % (20.5-50.1); MONOCYTES PERCENT AUTO 8.3 % (2-8); NEUTROPHILS PERCENT AUTO 34.0 % (42.2-75.2); PLATELET COUNT,PLT 307 10^3/uL (150-450); RED BLOOD CELL COUNT 4.52 10^6/uL (4.2-5.4); WHITE BLOOD CELL COUNT,WBC 5.9 10^3/uL (5.0-10.0)
[2024-12-08 20:21] LABS: A/G RATIO 0.86; ALANINE AMINOTRANSFERASE,ALT 185.0 U/L (14-59); ASPARTATE AMNIOTRANSFERASE,AST 122.0 U/L (15-37); BILIRUBIN TOTAL 0.3 mg/dL (0.2-1.0); BLOOD UREA NITROGEN,BUN 3.0 mg/dL (7-18); CARBON DIOXIDE,CO2 25.0 mmol/L (21-32); CHLORIDE,CL 108.0 mmol/L (98-107); CREATININE 0.68 mg/dL (0.55-1.02); EST CRCL DRUG DOSING (CG) 99.16 mL/min; ESTIMATED GFR 119.0 mL/min (>=60); ETHANOL BLOOD MEDICAL 234.0 mg/dL (0); GLUCOSE RANDOM 90.0 mg/dL (70-99); POTASSIUM,K 3.4 mmol/L (3.5-5.1); PROTEIN TOTAL,TP 6.7 g/dL (6.4-8.2); SODIUM,NA 141.0 mmol/L (136-145)
[2024-12-08] MEDS: LORazepam 2 MG/ML SDV IVPUSH ONE (21:22)
[2024-12-08] MEDS: Potassium Chloride 10 MEQ Tab.ER PO ONE (21:36)
[2024-12-08] MEDS: Magnesium Sulfate 2 GM/50 mL 2 GM in Premix Bag 1 BAG IV ONE (21:37)
[2024-12-08] MEDS: MVI, Adult with Vitamin K 10 ML, Folic Acid 1 MG, Thiamine 100 MG in Lactated Ringers 1... IV ONE (21:37)
[2024-12-09 03:52] LABS: APPEARANCE,URINE SLIGHTLY CLOUDY (CLEAR); GLUCOSE,URINE NEGATIVE (NEGATIVE); OCCULT BLOOD,URINE NEGATIVE (NEGATIVE)
[2024-12-09 03:57] LABS: AMPHETAMINES,URINE NEGATIVE (NEGATIVE); BARBITURATES,URINE NEGATIVE (NEGATIVE); MDMA (ECSTASY), URINE NEGATIVE (NEGATIVE); METHAMPHETAMINES,URINE NEGATIVE (NEGATIVE); OPIATES,URINE NEGATIVE (NEGATIVE); OXYCODONE,URINE NEGATIVE (NEGATIVE); PHENCYCLIDINE,URINE NEGATIVE (NEGATIVE); TCA,URINE NEGATIVE (NEGATIVE)
[2024-12-09 04:00] LABS: EPITHELIAL CELLS,URINE MANY /HPF (NOT SEEN)
[2024-12-09] MEDS: LORazepam 2 MG/ML SDV IVPUSH ONE (04:40)
[2024-12-09] MEDS ORDERED: Flumazenil 0.1 MG/ML 5 ML MDV IVPUSH PRN (04:55)
[2024-12-09] MEDS ORDERED: Metoprolol Tartrate 5 MG/5 ML SDV IVPUSH PRN (04:57)
[2024-12-09] MEDS ORDERED: hydrALAZINE 20 MG/ML SDV IVPUSH PRN (04:57)
[2024-12-09] MEDS ORDERED: Magnesium Hydroxide 400 MG/5 ML Susp 30 ML Cup PO PRN (04:58)
[2024-12-09] MEDS ORDERED: Sennosides/Docusate Sodium 50-8.6 MG Tab PO PRN (04:58)
[2024-12-10] MEDS: Multivitamins with Iron/Calcium/Folic Acid/Minerals Tab PO SCH (01:00)
[2024-12-10] MEDS: Nystatin Topical Powder 60 GM Bottle TOP PRN (01:01)
[2024-12-10 09:07] LABS: BASOPHILS PERCENT AUTO 0.5 % (0.0-1.0); EOSINOPHILS PERCENT AUTO 3.3 % (1.0-3.0); LYMPHOCYTES PERCENT AUTO 38.5 % (20.5-50.1); MONOCYTES PERCENT AUTO 8.8 % (2-8); NEUTROPHILS PERCENT AUTO 48.9 % (42.2-75.2); PLATELET COUNT,PLT 254 10^3/uL (150-450); RED BLOOD CELL COUNT 4.27 10^6/uL (4.2-5.4); WHITE BLOOD CELL COUNT,WBC 4.0 10^3/uL (5.0-10.0)
[2024-12-10 09:26] LABS: A/G RATIO 0.75; ALANINE AMINOTRANSFERASE,ALT 137.0 U/L (14-59); ASPARTATE AMNIOTRANSFERASE,AST 61.0 U/L (15-37); BILIRUBIN TOTAL 0.7 mg/dL (0.2-1.0); BLOOD UREA NITROGEN,BUN 4.0 mg/dL (7-18); CARBON DIOXIDE,CO2 26.0 mmol/L (21-32); CHLORIDE,CL 107.0 mmol/L (98-107); CREATININE 0.6 mg/dL (0.55-1.02); EST CRCL DRUG DOSING (CG) 112.38 mL/min; ESTIMATED GFR 123.0 mL/min (>=60); GLUCOSE RANDOM 91.0 mg/dL (70-99); POTASSIUM,K 3.7 mmol/L (3.5-5.1); PROTEIN TOTAL,TP 6.3 g/dL (6.4-8.2); SODIUM,NA 140.0 mmol/L (136-145)
[2024-12-10] MEDS: Ondansetron 4 MG/2 ML SDV IVPUSH PRN (10:24)
[2024-12-10] MEDS: LORazepam 2 MG/ML SDV IVPUSH ONE (15:17)
[2024-12-10] MEDS ORDERED: LORazepam 2 MG/ML SDV IVPUSH PRN (21:41)
[2024-12-11 10:59] VITALS: BP 116/65; PULSE 75
== END 2024-12-11 14:20 | disposition home or self-care (01) | DRG 897 ==
LOC: DL.ED 19:33 → DL.MS 12-09 04:43
PROVIDERS: ADMIT Internal Medicine; ATTEND Internal Medicine
PROC: HZ2ZZZZ Detoxification Services for Substance Abuse Treatment (ICD-10-PCS; principal; 2024-12-08)
DX: F10.239 Alcohol dependence with withdrawal, unspecified (principal); Z68.43 Body mass index [BMI] 50.0-59.9, adult; F10.229 Alcohol dependence with intoxication, unspecified; H54.7 Unspecified visual loss; F41.9 Anxiety disorder, unspecified; F32.A Depression, unspecified; E86.0 Dehydration; E87.6 Hypokalemia; E83.42 Hypomagnesemia; E87.8 Other disorders of electrolyte and fluid balance, not elsewhere classified; E88.09 Other disorders of plasma-protein metabolism, not elsewhere classified; E66.813 Obesity, class 3; Z88.0 Allergy status to penicillin; Z86.16 Personal history of COVID-19; Z79.899 Other long term (current) drug therapy
CPT/HCPCS: 36415; 80053; 80143; 80179; 80305-QW; 80307; 81001; 83735; 85025; 93005; 93010; 96365; 96368; 96375; 96376; 99284; 99285-25; A9270-GY; J1650; J2060; J2405; J2470; J3360; J3411; J3475; J3490; J7030; J7120

== ENCOUNTER 2024-12-12 17:27 | Observation (INO) | payer MEDICAID ==
[2024-12-12] MEDS: MVI, Adult with Vitamin K 10 ML, Folic Acid 1 MG, Thiamine 100 MG in Lactated Ringers 1... IV ONE (17:51)
[2024-12-12 17:56] LABS: BASOPHILS PERCENT AUTO 0.4 % (0.0-1.0); EOSINOPHILS PERCENT AUTO 0.9 % (1.0-3.0); LYMPHOCYTES PERCENT AUTO 22.4 % (20.5-50.1); MONOCYTES PERCENT AUTO 5.2 % (2-8); NEUTROPHILS PERCENT AUTO 71.1 % (42.2-75.2); PLATELET COUNT,PLT 251 10^3/uL (150-450); RED BLOOD CELL COUNT 4.30 10^6/uL (4.2-5.4); WHITE BLOOD CELL COUNT,WBC 7.5 10^3/uL (5.0-10.0)
[2024-12-12 18:02] LABS: APPEARANCE,URINE CLEAR (CLEAR); GLUCOSE,URINE NEGATIVE (NEGATIVE); OCCULT BLOOD,URINE NEGATIVE (NEGATIVE)
[2024-12-12 18:08] LABS: AMPHETAMINES,URINE NEGATIVE (NEGATIVE); BARBITURATES,URINE NEGATIVE (NEGATIVE); MDMA (ECSTASY), URINE NEGATIVE (NEGATIVE); METHAMPHETAMINES,URINE NEGATIVE (NEGATIVE); OPIATES,URINE NEGATIVE (NEGATIVE); OXYCODONE,URINE POSITIVE (NEGATIVE); PHENCYCLIDINE,URINE NEGATIVE (NEGATIVE); TCA,URINE NEGATIVE (NEGATIVE)
[2024-12-12 18:14] LABS: HCG QUALITATIVE,SERUM NEGATIVE (NEGATIVE)
[2024-12-12 18:18] LABS: INR 1.0 (0.9-1.2); PTT,PARTIAL THROMBOPLSTIN TIME 25.9 SEC (22.0-34.0)
[2024-12-12 18:27] LABS: ALANINE AMINOTRANSFERASE,ALT 97 U/L (14-59); ASPARTATE AMNIOTRANSFERASE,AST 45 U/L (15-37); BILIRUBIN TOTAL 0.3 mg/dL (0.2-1.0); BLOOD UREA NITROGEN,BUN 3 mg/dL (7-18); CARBON DIOXIDE,CO2 22 mmol/L (21-32); CHLORIDE,CL 106 mmol/L (98-107); CREATININE 0.59 mg/dL (0.55-1.02); EST CRCL DRUG DOSING (CG) 114.29 mL/min; ETHANOL BLOOD MEDICAL 59 mg/dL (0); GLUCOSE RANDOM 88 mg/dL (70-99); POTASSIUM,K 3.6 mmol/L (3.5-5.1); PROTEIN TOTAL,TP 7.1 g/dL (6.4-8.2); SODIUM,NA 141 mmol/L (136-145); TSH ULTRASENSITIVE 0.41 uIU/mL (0.36-3.74)
[2024-12-12 18:28] LABS: A/G RATIO 0.78; ESTIMATED GFR 123 mL/min (>=60)
[2024-12-12 18:29] LABS: LACTIC ACID 2.6 mmol/L (0.4-2.0)
[2024-12-12] MEDS: LORazepam 2 MG/ML SDV IVPUSH ONE (18:55)
[2024-12-12] MEDS ORDERED: Flumazenil 0.1 MG/ML 5 ML MDV IVPUSH PRN (19:47)
[2024-12-12] MEDS ORDERED: hydrALAZINE 20 MG/ML SDV IVPUSH PRN (19:56)
[2024-12-12] MEDS ORDERED: Metoprolol Tartrate 5 MG/5 ML SDV IVPUSH PRN (19:56)
[2024-12-12] MEDS: Magnesium Sulfate 2 GM/50 mL 2 GM in Premix Bag 1 BAG IV ONE (20:59)
[2024-12-12] MEDS: Scopalamine 1mg/3day Transdermal Patch TOP ONE (21:11)
[2024-12-13] MEDS: LORazepam 2 MG/ML SDV ONE (05:07)
[2024-12-13 06:06] LABS: BASOPHILS PERCENT AUTO 0.3 % (0.0-1.0); EOSINOPHILS PERCENT AUTO 3.9 % (1.0-3.0); LYMPHOCYTES PERCENT AUTO 32.7 % (20.5-50.1); MONOCYTES PERCENT AUTO 9.1 % (2-8); NEUTROPHILS PERCENT AUTO 54.0 % (42.2-75.2); PLATELET COUNT,PLT 233 10^3/uL (150-450); RED BLOOD CELL COUNT 4.02 10^6/uL (4.2-5.4); WHITE BLOOD CELL COUNT,WBC 7.9 10^3/uL (5.0-10.0)
[2024-12-13 06:23] LABS: ALANINE AMINOTRANSFERASE,ALT 74.0 U/L (14-59); ASPARTATE AMNIOTRANSFERASE,AST 30.0 U/L (15-37); BILIRUBIN TOTAL 0.5 mg/dL (0.2-1.0); BLOOD UREA NITROGEN,BUN 4.0 mg/dL (7-18); CARBON DIOXIDE,CO2 28.0 mmol/L (21-32); CHLORIDE,CL 108.0 mmol/L (98-107); CREATININE 0.59 mg/dL (0.55-1.02); EST CRCL DRUG DOSING (CG) 114.29 mL/min; GLUCOSE RANDOM 80.0 mg/dL (70-99); POTASSIUM,K 3.7 mmol/L (3.5-5.1); PROTEIN TOTAL,TP 6.1 g/dL (6.4-8.2); SODIUM,NA 142.0 mmol/L (136-145)
[2024-12-13 06:25] LABS: A/G RATIO 0.79; ESTIMATED GFR 123.0 mL/min (>=60)
[2024-12-13 13:06] LABS: APPEARANCE,URINE CLEAR (CLEAR); GLUCOSE,URINE NEGATIVE (NEGATIVE); OCCULT BLOOD,URINE TRACE-INTACT (NEGATIVE)
[2024-12-13 13:17] LABS: EPITHELIAL CELLS,URINE FEW /HPF (NOT SEEN)
[2024-12-13] MEDS: Sodium Chloride 0.9% 10 ML Syringe FLUSH PRN (22:04)
[2024-12-14] MEDS: diphenhydrAMINE 50 MG/ML SDV IVPUSH STA (04:21)
[2024-12-14 05:00] VITALS: PULSE 66
[2024-12-14 07:17] VITALS: BP 128/76
== END 2024-12-14 07:35 | disposition other institution (70) ==
LOC: DL.ED 17:27 → DL.MS 18:50
PROVIDERS: ADMIT Internal Medicine; ATTEND Internal Medicine
DX: F10.230 Alcohol dependence with withdrawal, uncomplicated (principal); F10.220 Alcohol dependence with intoxication, uncomplicated; F32.A Depression, unspecified; K29.00 Acute gastritis without bleeding; R74.01 Elevation of levels of liver transaminase levels; E88.09 Other disorders of plasma-protein metabolism, not elsewhere classified; E66.813 Obesity, class 3; Z88.1 Allergy status to other antibiotic agents; Z68.43 Body mass index [BMI] 50.0-59.9, adult; Z79.899 Other long term (current) drug therapy; Y90.2 Blood alcohol level of 40-59 mg/100 ml
CPT/HCPCS: 36415; 80053; 80143; 80179; 80305; 80307; 81001; 81003; 83605; 83690; 83735; 84443; 84484; 84703; 85025; 85610; 85730; 93010; 99223; 99232; 99238; A9270; J1200; J2060; J2470; J3360; J3411; J3475; J7030; J7120; J3490